=== PATIENT | female | born 1945 | race Caucasian/White ===

== ENCOUNTER 2025-06-17 20:14 | Observation (INO) ==
--- NOTE | 2025-06-17 20:33 | Emergency Department Note ---
Impression & Plan Head injury, Concussion, Hematoma of occipital region of scalp, Vomiting ED Provider Note NAME: CARMEN STEPHENS AGE: 80 SEX: F : 1945 ARRIVES VIA: Ambulance INFORMANT: Patient, EMS ED PROVIDER(S): Sukhjinder Mancilla DO CHIEF COMPLAINT: Trauma alert HPI: The patient is an 80-year-old female who presented to the emergency department after fall. The patient fell backwards striking the back of her head. Since that time she has had dizziness as well as vomiting. She has pain in the left side of her jaw. She also has ringing in her left ear. The patient denies having any fever. She denies having any syncope. The patient arrived via ALS. ROS: See above HPI for pertinent positives & negatives. A total of 10 systems reviewed and were otherwise negative. PAST MEDICAL HISTORY: See Below PAST SURGICAL HISTORY: See Below FAMILY HISTORY: See Below SOCIAL HISTORY: See Below HOME MEDICATIONS: See Below ALLERGIES: See Below VITALS: See Below PHYSICAL EXAMINATION: Primary Survey Airway: Intact Breathing: Normal, breath sounds equal bilaterally Circulation: Skin warm, distal pulses 2+, capillary refill less than 2 seconds Disability Pupils: Equal and reactive to light, 3mm, brisk GCS: 15, Motor Function: Moves all extremities. Sensory: No deficits Secondary Survey GEN: Well developed and well-nourished HEAD: There was tenderness over the left occipital scalp. There was a laceration. No active bleeding was noted. EYES: Pupils round reactive to light, conjunctiva clear, extraocular movements intact, no raccoons eyes ENT: No fluid in external acoustic canals, no hemotympanum, no galindo's sign, nares patent, oropharynx clear NECK: No JVD, midline trachea, no cervical spine tenderness, no tenderness was noted over the cervical spine. HEART: Regular rate and rhythm LUNGS: Clear to auscultation bilaterally. CHEST: Chest wall non-tender, no bruising/deformity ABD: There is no tenderness guarding or rigidity noted. BACK: No step offs or deformities, T-L spine non tender EXT: 2+ global pulses, moving all extremities well, +5/5 muscle strength globally NEURO: CNII-XII grossly intact, no sensory deficits MEDICAL DECISION MAKING: The patient is an 80-year-old female who presented to the emergency department as a trauma activation. The patient was walking when she fell backwards. She was walking upstairs and when she fell backwards down 1 step she hit the back of her head. She was made a trauma alert prior to arrival because of dizziness. She also had episodes of vomiting. I discussed patient's laboratory and radiographic studies with her. She was treated with antiemetics in the emergency department. On reevaluation she was somewhat improved. Given the patient's continued symptoms of concussion I did discuss her condition with the on-call [facility] hospitalist. They have agreed to evaluate the patient in the emergency department for further management and disposition. The patient had bleeding in her occipital scalp which is appears to be secondary to a large hematoma. There is mostly abrasions I do not feel these are amenable to laceration repair at this time. She was treated with a pressure dressing. Triage Nursing notes reviewed. Prior medical records reviewed Vital Signs: reviewed and remarkable for elevated blood pressure. Differential diagnosis: Fracture, dislocation, contusion, intra-abdominal, pneumothorax, intrathoracic, intracranial, neurologic, compartment syndrome, rhabdomyolysis, as well as other pathologies. ER treatment provided: See below Diagnostics interpreted by me: ECG:EKG was obtained in the emergency department. My interpretation is normal sinus rhythm at 73 bpm. There is no ectopy. There was no acute ST segment elevations noted. QTc was 449 ms. Cardiac Monitoring: An order was placed for continuous cardiac monitoring. The monitor shows a rate of 72 bpm with sinus rhythm. Laboratory studies: As stated above and show below. Imaging studies: See below. Radiographic imaging was reviewed by myself Consultation(s): I discussed this case with Dr. M[facility]ks [facility] COURSE: Cervical spine was clinically cleared in the emergency department. It was then radiographically cleared as well. Past Med/Surg History Problem List (Updated 06/17/25 @ 23:31 by Sukhjinder Mancilla DO) Vomiting (Acute) Hematoma of occipital region of scalp (Acute) Concussion (Acute) Head injury (Acute) Medical History (Updated 06/17/25 @ 23:31 by Sukhjinder Mancilla DO) Hypothyroid High cholesterol Hypertension Home Meds Home Medications Medication Instructions Recorded Confirmed alprazolam 0.5 mg tablet mg 06/17/25 fluoxetine 40 mg capsule mg 06/17/25 06/17/25 levothyroxine 50 mcg tablet mcg 06/17/25 lisinopril 30 mg tablet mg 06/17/25 rosuvastatin 10 mg tablet mg 06/17/25 trazodone 50 mg tablet mg 06/17/25 Results & Data (ED) Vital Signs Vital Signs - 24 hr 06/17/25 20:06 06/17/25 20:06 06/17/25 20:06 Temperature 36.6 C 36.6 C 36.6 C Temperature Source Oral Oral Pulse Rate 66 80 Pulse Rate [Apical] 70 Pulse Rate from SpO2 Sensor Pulse Rhythm Regular Pulse Rhythm [Apical] Regular Respiratory Rate 16 17 14 Respiratory Effort / Characteristics Non-Labored Spontaneous Non-Labored Respiratory Depth Normal Normal Respiratory Pattern Regular Blood Pressure 148/68 H 165/70 H Blood Pressure [Right Arm] 148/68 H Blood Pressure Mean 94 Blood Pressure Mean [Right Arm] 94 Pulse Oximetry 98 97 95 Oxygen Delivery Method Room Air Room Air Oxygen Flow Rate 0 Sepsis Recent Fever Within 48 Hours No Sepsis New/Unexplained Change in Mental Status No Sepsis Action Taken by Nursing No Action Required 06/17/25 20:06 06/17/25 20:30 06/17/25 20:31 Temperature 36.6 C Temperature Source Oral Pulse Rate 65 64 Pulse Rate [Apical] 66 Pulse Rate from SpO2 Sensor Pulse Rhythm Regular Pulse Rhythm [Apical] Respiratory Rate 17 20 Respiratory Effort / Characteristics Respiratory Depth Respiratory Pattern Blood Pressure Blood Pressure [Right Arm] 165/70 H Blood Pressure Mean Blood Pressure Mean [Right Arm] 101 Pulse Oximetry 97 97 Oxygen Delivery Method Room Air Room Air Oxygen Flow Rate Sepsis Recent Fever Within 48 Hours Sepsis New/Unexplained Change in Mental Status Sepsis Action Taken by Nursing 06/17/25 21:10 06/17/25 21:10 06/17/25 21:12 Temperature Temperature Source Pulse Rate 70 Pulse Rate [Apical] Pulse Rate from SpO2 Sensor 70 Pulse Rhythm Pulse Rhythm [Apical] Respiratory Rate 17 Respiratory Effort / Characteristics Respiratory Depth Respiratory Pattern Blood Pressure 148/65 H 148/65 H Blood Pressure [Right Arm] Blood Pressure Mean 80 80 Blood Pressure Mean [Right Arm] Pulse Oximetry 99 Oxygen Delivery Method Oxygen Flow Rate Sepsis Recent Fever Within 48 Hours Sepsis New/Unexplained Change in Mental Status Sepsis Action Taken by Nursing 06/17/25 21:18 06/17/25 21:30 06/17/25 21:30 Temperature Temperature Source Pulse Rate 67 Pulse Rate [Apical] Pulse Rate from SpO2 Sensor 68 Pulse Rhythm Pulse Rhythm [Apical] Respiratory Rate 21 Respiratory Effort / Characteristics Respiratory Depth Respiratory Pattern Blood Pressure 166/92 H 166/92 H Blood Pressure [Right Arm] Blood Pressure Mean 126 126 Blood Pressure Mean [Right Arm] Pulse Oximetry 96 Oxygen Delivery Method Oxygen Flow Rate Sepsis Recent Fever Within 48 Hours Sepsis New/Unexplained Change in Mental Status Sepsis Action Taken by Nursing 06/17/25 21:30 06/17/25 21:30 06/17/25 21:45 Temperature Temperature Source Pulse Rate 88 73 Pulse Rate [Apical] Pulse Rate from SpO2 Sensor 76 72 Pulse Rhythm Pulse Rhythm [Apical] Respiratory Rate 21 20 Respiratory Effort / Characteristics Respiratory Depth Respiratory Pattern Blood Pressure 166/92 H Blood Pressure [Right Arm] Blood Pressure Mean 126 Blood Pressure Mean [Right Arm] Pulse Oximetry 100 100 Oxygen Delivery Method Oxygen Flow Rate Sepsis Recent Fever Within 48 Hours Sepsis New/Unexplained Change in Mental Status Sepsis Action Taken by Nursing 06/17/25 21:51 06/17/25 22:00 06/17/25 22:12 Temperature Temperature Source Pulse Rate 73 68 Pulse Rate [Apical] Pulse Rate from SpO2 Sensor 73 68 Pulse Rhythm Pulse Rhythm [Apical] Respiratory Rate 18 22 Respiratory Effort / Characteristics Respiratory Depth Respiratory Pattern Blood Pressure 156/75 H Blood Pressure [Right Arm] Blood Pressure Mean 118 Blood Pressure Mean [Right Arm] Pulse Oximetry 100 99 Oxygen Delivery Method Oxygen Flow Rate Sepsis Recent Fever Within 48 Hours Sepsis New/Unexplained Change in Mental Status Sepsis Action Taken by Nursing 06/17/25 22:30 06/17/25 22:30 06/17/25 22:48 Temperature Temperature Source Pulse Rate 72 Pulse Rate [Apical] Pulse Rate from SpO2 Sensor 72 Pulse Rhythm Pulse Rhythm [Apical] Respiratory Rate 21 Respiratory Effort / Characteristics Respiratory Depth Respiratory Pattern Blood Pressure 160/63 H 160/63 H Blood Pressure [Right Arm] Blood Pressure Mean 76 76 Blood Pressure Mean [Right Arm] Pulse Oximetry 94 Oxygen Delivery Method Room Air Oxygen Flow Rate Sepsis Recent Fever Within 48 Hours Sepsis New/Unexplained Change in Mental Status Sepsis Action Taken by Custodial Medications Current Medication List: was personally reviewed by me Laboratory Data Attestation: I reviewed the patient's lab results. 06/17/25 20:23 06/17/25 20:23 Lab Results 06/17/25 06/17/25 Range/Units 20:23 20:48 WBC 8.41 (4.8-10.8) K/ul RBC 3.84 L (4.20-5.40) M/uL Hgb 12.0 (12.0-16.0) g/dl POC Hgb 11.6 L (12.0-16.0) g/dl Hct 35.0 L (37.0-47.0) % POC Hct 34 L (37-47) % MCV 91.1 (80.0-100.0) fL MCH 31.3 (25.0-34.0) pg MCHC 34.3 (32.0-36.0) g/dL RDW Std Deviation 41.8 (36.4-46.3) fL RDW Coeff of [place] 12.6 (11.5-14.5) % Plt Count 247 (130-400) K/uL MPV 9.2 L (9.4-12.4) fL Neutrophils % (Manual) 36 % Lymphocytes % (Manual) 20 % Monocytes % (Manual) 16 % Eosinophils % (Manual) 4 % Basophils % (Manual) 1 % Metamyelocytes % (Man) 1 % Myelocytes % (Man) 1 % Neutrophils # (Manual) 3.03 (1.40-6.50) K/uL Total Absolute Neuts 3.03 (1.4-6.5) K/uL Lymphocytes # (Manual) 1.68 (1.2-3.4) K/uL Total Abs Lymphocytes 3.45 H (1.2-3.4) K/uL Monocytes # (Manual) 1.35 H (0.11-0.59) K/uL Eosinophils # (Manual) 0.34 (0-0.50) K/uL Basophils # (Manual) 0.08 (0-0.2) K/uL Metamyelocytes # (Man) 0.08 H (0-0) K/uL Myelocytes # (Manual) 0.08 H (0-0) K/uL Large Granular Lymphs 21 % # Lrg Granular Lymphs 1.77 K/uL Polychromasia 1+ Ovalocytes 1+ PT 10.3 (9.0-12.0) Seconds INR 1.0 (0.9-1.1) APTT < 20 L (21-31) Seconds PTT Ratio < 0.7 POC Sodium 138 (135-144) mmol/L Sodium 136 (136-145) mmol/L POC Potassium 3.4 (3.3-5.0) mmol/L Potassium 3.5 (3.5-5.1) mmol/L POC Chloride 105 (101-112) mmol/L Chloride 105 (98-107) mmol/L Carbon Dioxide 21 (21-32) mmol/L POC Total CO2 19 L (24-31) mmol/L Anion Gap 10 (3-11) POC Anion Gap 18.0 (16-25) mmol/L POC BUN 22 H (7-18) mg/dl BUN 25 H (6-23) mg/dl Creatinine 1.02 (0.6-1.2) mg/dl POC Creatinine 1.1 (0.6-1.3) mg/dl Est Cr Clr Drug Dosing 45.5 ml/min eGFR 55.27 BUN/Creatinine Ratio 24.5 H (10-20) Glucose 136 H (70-99(Fasting)) mg/dl POC Glucose (other) 134 H (70-99) mg/dl Calcium 9.2 (8.6-10.3) mg/dl POC Ioniz Calcium Bing 1.15 (1.12-1.32) mmol/l Total Bilirubin 0.4 (0.2-1.0) mg/dl AST 23 (13-39) U/L ALT 15 (7-52) U/L Alkaline Phosphatase 68 (34-104) U/L Troponin I High Sens 7.0 (0-14) pg/ml Total Protein 6.4 (6.0-8.3) gm/dl Albumin 3.7 (3.4-5.0) gm/dl Globulin 2.7 (2.5-4.0) gm/dl Albumin/Globulin Ratio 1.4 (0.9-2) Lipase 39 (11-82) U/L Administered Medications Discontinued Medications Acetaminophen (Ofirmev) 1,000 mg in 100 mls @ 400 mls/hr IV NOW STA Stop: 06/17/25 20:44 Last Infusion: 06/17/25 21:28 Dose: Infused Documented By: mls Admin: 06/17/25 20:47 Dose: 400 mls/hr Documented By: mls Ondansetron HCl (Ondansetron Inj 2 Mg/Ml 2 Ml Vial) 4 mg IV NOW STA Stop: 06/17/25 20:31 Last Admin: 10/24/25 20:47 Dose: 4 mg Documented By: mls Imaging Data Attestation: I personally reviewed and interpreted this imaging study as follows: My Impression: CT of the brain was obtained in the emergency department. My interpretation is no intracranial hemorrhage or mass effect, final report below. Radiologist's Impression: Cervical Spine CT 06/17/25 20:30 Exam(s): CT C SPINE EXAM: CT Cervical Spine Without Intravenous Contrast CLINICAL HISTORY: Reason for exam: Trauma. TECHNIQUE: Axial computed tomography images of the cervical spine without intravenous contrast. CTDI is 26.96 mGy and DLP is 623.84 mGy-cm. Automated exposure control was utilized for the study. A dose lowering technique was utilized adhering to the principles of ALARA. COMPARISON: No relevant prior studies available. FINDINGS: Vertebrae: Mild narrowing and osteophytosis of the atlantodental joint. The odontoid process is intact. No acute fracture. Soft tissues: Unremarkable. DISCS/SPINAL CANAL/NEURAL FORAMINA: C2-C3: Mild degenerative disc disease. No stenosis. C3-C4: Mild degenerative disc disease. No stenosis. C4-C5: Severe degenerative disc disease. No stenosis. C5-C6: Moderate degenerative disc disease. No stenosis. C6-C7: Unremarkable. No significant disc disease. No stenosis. C7-T1: Unremarkable. No significant disc disease. No stenosis. 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 No acute fracture or subluxation is seen. There is reversal of the normal cervical curvature suggesting spasm. Electronically signed by: Travis Guthrie MD 06/17/25 22:02 PM Chest X-Ray 06/17/25 20:30 Exam(s): XR CXR 1 VIEW EXAM: XR Chest, 1 View CLINICAL HISTORY: Reason for exam: Trauma. TECHNIQUE: Frontal view of the chest. COMPARISON: No relevant prior studies available. FINDINGS: Lungs: Underinflated lungs with small amount of bibasilar subsegmental atelectasis, less likely infiltrate. Pleural space: Unremarkable. No pneumothorax. Heart: Unremarkable. No cardiomegaly. Mediastinum: Unremarkable. Normal mediastinal contour. Bones/joints: Unremarkable. No acute fracture. Vasculature: Mild calcification of the aortic arch which is upper normal in size. Upper abdomen: Unremarkable as visualized. No pneumoperitoneum under the diaphragm. IMPRESSION: Underinflated lungs with small amount of bibasilar subsegmental atelectasis, less likely infiltrate. Electronically signed by: Travis Guthrie MD 06/17/25 21:[address] 06/17/25 20:30 Exam(s): CT FACIAL Without Contrast EXAM: CT Maxillofacial Without Intravenous Contrast CLINICAL HISTORY: Reason for exam: Trauma. TECHNIQUE: Axial computed tomography images of the face without intravenous contrast. CTDI is 26.96 mGy and DLP is 623.84 mGy-cm. Automated exposure control was utilized for the study. A dose lowering technique was utilized adhering to the principles of ALARA. COMPARISON: No relevant prior studies available. FINDINGS: Bones/joints: Mild narrowing and osteophytosis of the right temporomandibular joint. The mandible is intact and normally positioned. No acute fracture. Soft tissues: Unremarkable. No significant facial contusion is identified. Orbits: Unremarkable. Sinuses: Unremarkable. No air-fluid levels. IMPRESSION: No acute findings in the face. Electronically signed by: Travis Guthrie MD 06/17/25 21:[address] 06/17/25 20:30 Exam(s): CT HEAD Without Contrast EXAM: CT Head Without Intravenous Contrast CLINICAL HISTORY: Reason for exam: Trauma. TECHNIQUE: Axial computed tomography images of the head/brain without intravenous contrast. CTDI is 38.55 mGy and DLP is 624.41 mGy-cm. Automated exposure control was utilized for the study. A dose lowering technique was utilized adhering to the principles of ALARA. COMPARISON: No relevant prior studies available. FINDINGS: Brain: [id number] diffuse cerebral atrophy. The brain is otherwise unremarkable. No acute large vessel infarct or intracranial hemorrhage is seen. Ventricles: Unremarkable. No ventriculomegaly. Bones/joints: See below. Soft tissues: Posterior scalp hematoma and laceration. No foreign body. No skull fracture. Sinuses: Unremarkable as visualized. No acute sinusitis. Mastoid air cells: Unremarkable as visualized. No mastoid effusion. IMPRESSION: 1. Posterior scalp hematoma and laceration. No foreign body. No skull fracture. 2. [id number]-[id number] diffuse cerebral atrophy. The brain is otherwise unremarkable. No acute large vessel infarct or intracranial hemorrhage is seen. Electronically signed by: Travis Guthrie MD 06/17/25 21:27 PM Discharge Plan Visit Data Chief Complaint: Trauma Stated Complaint: FALL, HIT BACK OF HEAD ED Provider: Sukhjinder Mancilla Discharge Problem: Head injury, Concussion, Hematoma of occipital region of scalp, Vomiting Patient Disposition: Being Evaluated by Hospitalist Condition: Fair Forms Stand Alone Forms: [facility] Prescriptions Prescriptions: No Action fluoxetine 40 mg capsule trazodone 50 mg tablet alprazolam 0.5 mg tablet levothyroxine 50 mcg tablet lisinopril 30 mg tablet rosuvastatin 10 mg tablet Referrals Referrals: PCP,NO [Primary Care Provider] -
[2025-06-17 20:40] LABS: Hematocrit (blood only) 35.0 % (37.0-47.0); Hemoglobin 12.0 g/dl (12.0-16.0); Mean Corpuscular Hemoglobin 31.3 pg (25.0-34.0); Mean Corpuscular Volume 91.1 fL (80.0-100.0); Platelet Count 247 K/uL (130-400); RDW Standard Deviation 41.8 fL (36.4-46.3); Red Blood Count 3.84 M/uL (4.20-5.40); White Blood Count 8.41 K/ul (4.8-10.8)
[2025-06-17] MEDS: ONDANSETRON INJ 2 MG/ML 2 ML VIAL IV STA (20:47)
[2025-06-17] MEDS: ACETAMINOPHEN 1,000 MG/100 ML VIAL IV STA (20:47)
[2025-06-17 20:56] LABS: Alanine Aminotransferase 15.0 U/L (7-52); Albumin Globulin Ratio 1.4 (0.9-2); Albumin Level 3.7 gm/dl (3.4-5.0); Alkaline Phosphatase 68.0 U/L (34-104); Anion Gap 10.0 (3-11); Bilirubin,Total 0.4 mg/dl (0.2-1.0); Blood Urea Nitrogen 25.0 mg/dl (6-23); Calcium 9.2 mg/dl (8.6-10.3); Carbon Dioxide 21.0 mmol/L (21-32); Chloride 105.0 mmol/L (98-107); Creatinine Clr Calc Pharmacy 45.5 ml/min; Globulin 2.7 gm/dl (2.5-4.0); Glucose 136.0 mg/dl (70-99(Fasting)); Lipase 39.0 U/L (11-82); Potassium 3.5 mmol/L (3.5-5.1); Sodium 136.0 mmol/L (136-145); Total Protein 6.4 gm/dl (6.0-8.3)
--- NOTE | 2025-06-17 21:12 | XRay Report ---
Exam(s): XR CXR 1 VIEW EXAM: XR Chest, 1 View CLINICAL HISTORY: Reason for exam: Trauma. TECHNIQUE: Frontal view of the chest. COMPARISON: No relevant prior studies available. FINDINGS: Lungs: Underinflated lungs with small amount of bibasilar subsegmental atelectasis, less likely infiltrate. Pleural space: Unremarkable. No pneumothorax. Heart: Unremarkable. No cardiomegaly. Mediastinum: Unremarkable. Normal mediastinal contour. Bones/joints: Unremarkable. No acute fracture. Vasculature: Mild calcification of the aortic arch which is upper normal in size. Upper abdomen: Unremarkable as visualized. No pneumoperitoneum under the diaphragm. IMPRESSION: Underinflated lungs with small amount of bibasilar subsegmental atelectasis, less likely infiltrate. Electronically signed by: Travis Guthrie MD 06/17/25 21:11 PM
--- NOTE | 2025-06-17 21:28 | CT Scan Report ---
Exam(s): CT HEAD Without Contrast EXAM: CT Head Without Intravenous Contrast CLINICAL HISTORY: Reason for exam: Trauma. TECHNIQUE: Axial computed tomography images of the head/brain without intravenous contrast. CTDI is 38.55 mGy and DLP is 624.41 mGy-cm. Automated exposure control was utilized for the study. A dose lowering technique was utilized adhering to the principles of ALARA. COMPARISON: No relevant prior studies available. FINDINGS: Brain: Ttju-mh-zxkowpsy diffuse cerebral atrophy. The brain is otherwise unremarkable. No acute large vessel infarct or intracranial hemorrhage is seen. Ventricles: Unremarkable. No ventriculomegaly. Bones/joints: See below. Soft tissues: Posterior scalp hematoma and laceration. No foreign body. No skull fracture. Sinuses: Unremarkable as visualized. No acute sinusitis. Mastoid air cells: Unremarkable as visualized. No mastoid effusion. IMPRESSION: 1. Posterior scalp hematoma and laceration. No foreign body. No skull fracture. 2. Hsox-jv-ijlajuap diffuse cerebral atrophy. The brain is otherwise unremarkable. No acute large vessel infarct or intracranial hemorrhage is seen. Electronically signed by: Travis Guthrie MD 06/17/25 21:27 PM
--- NOTE | 2025-06-17 21:30 | CT Scan Report ---
Exam(s): CT FACIAL Without Contrast EXAM: CT Maxillofacial Without Intravenous Contrast CLINICAL HISTORY: Reason for exam: Trauma. TECHNIQUE: Axial computed tomography images of the face without intravenous contrast. CTDI is 26.96 mGy and DLP is 623.84 mGy-cm. Automated exposure control was utilized for the study. A dose lowering technique was utilized adhering to the principles of ALARA. COMPARISON: No relevant prior studies available. FINDINGS: Bones/joints: Mild narrowing and osteophytosis of the right temporomandibular joint. The mandible is intact and normally positioned. No acute fracture. Soft tissues: Unremarkable. No significant facial contusion is identified. Orbits: Unremarkable. Sinuses: Unremarkable. No air-fluid levels. IMPRESSION: No acute findings in the face. Electronically signed by: Travis Guthrie MD 06/17/25 21:29 PM
[2025-06-17 21:58] LABS: INR 1.0 (0.9-1.1); Prothrombin Time 10.3 Seconds (9.0-12.0)
[2025-06-17 22:00] LABS: Partial Thromboplastin Time < 20 Seconds (21-31)
--- NOTE | 2025-06-17 22:04 | CT Scan Report ---
Exam(s): CT C SPINE EXAM: CT Cervical Spine Without Intravenous Contrast CLINICAL HISTORY: Reason for exam: Trauma. TECHNIQUE: Axial computed tomography images of the cervical spine without intravenous contrast. CTDI is 26.96 mGy and DLP is 623.84 mGy-cm. Automated exposure control was utilized for the study. A dose lowering technique was utilized adhering to the principles of ALARA. COMPARISON: No relevant prior studies available. FINDINGS: Vertebrae: Mild narrowing and osteophytosis of the atlantodental joint. The odontoid process is intact. No acute fracture. Soft tissues: Unremarkable. DISCS/SPINAL CANAL/NEURAL FORAMINA: C2-C3: Mild degenerative disc disease. No stenosis. C3-C4: Mild degenerative disc disease. No stenosis. C4-C5: Severe degenerative disc disease. No stenosis. C5-C6: Moderate degenerative disc disease. No stenosis. C6-C7: Unremarkable. No significant disc disease. No stenosis. C7-T1: Unremarkable. No significant disc disease. No stenosis. IMPRESSION: Cvkm-zl-aerwkjhk multilevel degenerative disc disease and facet arthrosis throughout the cervical spine. No acute fracture or subluxation is seen. There is reversal of the normal cervical curvature suggesting spasm. Electronically signed by: Travis Guthrie MD 06/17/25 22:02 PM
[2025-06-17 23:11] LABS: ALC (manual) 3.45 K/uL (1.2-3.4); ANC (manual) 3.03 K/uL (1.4-6.5); Large Granular Lymph # (manua 1.77 K/uL; Large Granular Lymph % (manual) 21 %; Ovalocytes 1+; Polychromasia 1+
--- NOTE | 2025-06-17 23:24 | History & Physical Report ---
Date of Service June 17, 2025 Assessment & Plan (1) Head injury: (2) Concussion: (3) Hematoma of occipital region of scalp: (4) Vomiting: Plan Patient is an 80-year-old female with a past medical history of HTN, HLD, hypothyroidism, depression. Patient presented via EMS after she was going up poorly lit stairs without a railing and lost her balance falling backwards striking her head on the concrete step; denies loss of consciousness or anticoagulant use. She presented as a trauma alert. She is being admitted for symptom control of postconcussive syndrome. #trauma/postconcussive syndrome/scalp hematoma Diagnostic imaging revealed posterior scalp hematoma otherwise no acute changes. Hemodynamically stable at time of admission. Dizziness/nausea control Zofran and meclizine as needed Pain control with Tylenol as needed, Toradol 10 mg IV for breakthrough pain Daily dressing changes to scalp Neurochecks every 4 hours Repeat CBC with morning labs #HTN continue lisinopril #HLD continue statin #Hypothyroidism continue levothyroxine #mental health - Continue fluoxetine, alprazolam, as needed trazodone VTE ppx: SCDs, low risk and scalp hematoma Dispo: PCU as patient was trauma alert; anticipate dc home 06/18 Admission and Anticipated Discharge Date Admission Date: 06/17/25 History of Present Illness Chief Complaint: trauma Primary Care Provider: NO PCP Patient is an 80-year-old female with a past medical history of HTN, HLD, hypothyroidism, depression. Patient presented via EMS after she was going up poorly lit stairs without a railing and lost her balance falling backwards striking her head on the concrete step; denies loss of consciousness or anticoagulant use. She presented as a trauma alert. She is being admitted for symptom control of postconcussive syndrome. Patient seen at bedside with her [id number] (who is an RN) and granddaughter present. She was visiting her granddaughters this weekend, she resides in [place]. She feels as though she lost her balance because the steps were poorly wet and there was no railing. She struck the back of her head and left side of her face on the concrete floor. She was extremely dizzy and nauseous after that episode, vomiting approximately 8 times. Denies any hematemesis. Her nausea and pain are currently well-controlled after Zofran 4 Mg IV and Tylenol 1 G IV in the ED. She denies any current dizziness/lightheadedness, chest pain, shortness of breath, abdominal pain, extremity pain. She denies nicotine use. She denies any past history of DM or lung conditions such as COPD or asthma. She is due for her evening medications which consists of lisinopril and a statin. She takes her mental health medications in the morning, has Trazodone as needed. She denies using bupropion, cyclobenzaprine, or tramadol. She wishes to be DNR/DNI. Allergies Allergy/AdvReac Type Severity Reaction Status Date / Time Sulfa (Sulfonamide Allergy Headache Verified 06/18/25 00:11 Antibiotics) Home Medications Medication Instructions Recorded Confirmed Type alprazolam 0.5 mg tablet 0.5 mg PO DAILY 06/17/25 06/17/25 History fluoxetine 40 mg capsule 40 mg PO DAILY 06/17/25 06/17/25 History levothyroxine 50 mcg tablet 50 mcg PO DAILY 06/17/25 06/17/25 History lisinopril 30 mg tablet 30 mg PO HS 06/17/25 06/17/25 History rosuvastatin 10 mg tablet 10 mg PO HS 06/17/25 06/17/25 History trazodone 50 mg tablet 50 mg PO DAILY PRN Anxiety 06/17/25 06/17/25 History Past Med/Surg History Problem List (Updated 06/17/25 @ 23:31 by Sukhjinder Mancilla DO) Vomiting (Acute) Hematoma of occipital region of scalp (Acute) Concussion (Acute) Head injury (Acute) Medical History (Updated 06/17/25 @ 23:31 by Sukhjinder Mancilla DO) Hypothyroid High cholesterol Hypertension Social History Smoking Status: Never smoker Second Hand Exposure: No; Do You Dip or Chew Tobacco: No; Tobacco Cessation Education Requested by Patient: No Hx Alcohol Use: No Hx Substance Use: No Preferred Language: Polish Communication Ability: Effective Blade Grader Operator Required: No Beliefs That Will Affect Care: None Current Living Situation: Alone Other Information That Helps Us Care for You: No Feels Safe at Home: Yes Safety Concerns: Feels Safe At This Time Assistive Devices: None Review of Systems Review of Systems: see HPI Physical Exam Physical Exam: The patient is awake, alert and oriented 3, well developed and well nourished, in no acute distress. Non-toxic appearing. HEENT- EOMI, mucous membranes moist. Hearing grossly intact. Bleeding to posterior scalp, dressing placed in ED. Heart-normal S1 and S2. No murmurs, rubs or gallops. Lungs-clear bilaterally, no respiratory distress, no accessory muscle use. Abdomen-normal bowel sounds and soft. No ascites noted. Non-tender. Extremities- no clubbing, cyanosis, or edema. Rheumatologic-normal range of motion. Psychiatric-normal affect. Results & Data Results & Data Vital Signs (Past 12 Hours) Vital Signs Temp Pulse Pulse Resp BP BP Pulse Ox 06/17/25 22:48 72 21 94 06/17/25 22:30 160/63 H 06/17/25 22:30 160/63 H 06/17/25 22:12 68 22 99 06/17/25 22:00 156/75 H 06/17/25 21:51 73 18 100 06/17/25 21:45 73 20 100 06/17/25 21:30 88 21 100 06/17/25 21:30 166/92 H 06/17/25 21:30 166/92 H 06/17/25 21:30 166/92 H 06/17/25 21:18 67 21 96 06/17/25 21:12 70 17 99 06/17/25 21:10 148/65 H 06/17/25 21:10 148/65 H 06/17/25 20:31 64 06/17/25 20:30 65 20 97 06/17/25 20:06 36.6 C 66 17 165/70 H 97 06/17/25 20:06 36.6 C 80 14 165/70 H 95 06/17/25 20:06 36.6 C 70 17 148/68 H 97 06/17/25 20:06 36.6 C 66 16 148/68 H 98 O2 Del Method O2 Flow Rate 06/17/25 22:48 Room Air 06/17/25 22:30 06/17/25 22:30 06/17/25 22:12 06/17/25 22:00 06/17/25 21:51 06/17/25 21:45 06/17/25 21:30 06/17/25 21:30 06/17/25 21:30 06/17/25 21:30 06/17/25 21:18 06/17/25 21:12 06/17/25 21:10 06/17/25 21:10 06/17/25 20:31 06/17/25 20:30 Room Air 06/17/25 20:06 Room Air 06/17/25 20:06 Room Air 0 06/17/25 20:06 06/17/25 20:06 Room Air Laboratory Results reviewed cbc, cmp, pt/inr, trop Diagnostic Findings reviewed head ct, face ct, cxr, cervical spine CT Medications Administered ed - zofran 4mg IV, Tylenol 1g IV ECG Additional Comments: ordered Code Status & VTE Plan Code Status dnr/dni VTE Prophylaxis Plan VTE Prophylaxis will be ordered: Yes Supervising Physician Co-Signing Physician Notes Attending addendum: I have physically seen this patient, have supervised the MARGUERITE's activities, and agree with the H&P unless as otherwise noted. Assessment and Plan: The patient is an 80-year-old female with past medical history of hypertension, hyperlipidemia, hypothyroidism, and depression. She presented to the emergency department via EMS after losing her balance going up a poorly lit flight of stairs, fell backwards, and struck her head on a concrete step. She denies loss of consciousness. She does not take antiplatelets or anticoagulants. She presented to the emergency department as a trauma alert. [facility], likely postconcussive syndrome. Trauma/postconcussive syndrome/scalp hematoma- Admit to monitored bed CT face negative CT cervical spine showed multilevel degenerative disc disease and facet arthrosis along with cervical muscle spasm. CT scan of head showed p osterior scalp hematoma and lack, with mild to moderate cerebral atrophy. Acetaminophen 600 mg by mouth every 6 hours as needed for mild pain or fever Zofran 4 mg IV every 6 hours as needed Meclizine 12.5 mg p.o. every 6 hours as needed vertigo Wound care Neurochecks every 4 hours per protocol Repeat CBC with differential and basic metabolic panel in the a.m. Avoid NSAIDs and anticoagulation post trauma Hypertension- Continue lisinopril Hyperlipidemia- Continue rosuvastatin Hypothyroidism- Continue levothyroxine Mental health- Continue fluoxetine, alprazolam and as needed trazodone Remaining orders and notations as noted PG Care Time/CCT Total # of Minutes Spent Total Time Spent with Patient: Total time spent is greater than 50% in coordination of care (as documented) at patient's floor/unit and/or counseling patient: Coding Level of Care Code 38619 INT INP/OBS CARE 3/75MIN Diagnoses Head injury S09.90XA Concussion S06.0XAA Hematoma of occipital region of scalp S00.03XA Vomiting R11.10
[2025-06-18] MEDS: LIDOCAINE 1% LOCAL 20 ML VIAL INFIL ONE (00:12)
[2025-06-18] MEDS ORDERED: DOCUSATE SODIUM 100 MG CAP PO PRN (01:12)
[2025-06-18] MEDS ORDERED: MELATONIN 3 MG TAB PO PRN (01:12)
[2025-06-18] MEDS: MECLIZINE 12.5 MG TAB PO PRN (01:26)
[2025-06-18 03:14] LABS: Appearance Urine Clear (Clear); Bacteria Urine Automated None Seen (None Seen); Cast Urine Automated 0-2 /lpf (0-2); Epithelial Cell Urine Auto 0-2 /hpf (0-2); Glucose Urine UA Negative (Negative); WBC Urine Automated 0-5 /hpf (0-5)
[2025-06-18] MEDS: LEVOTHYROXINE SODIUM 50 MCG TABLET PO SCH (06:33)
[2025-06-18 06:39] LABS: Hematocrit (blood only) 33.8 % (37.0-47.0); Hemoglobin 11.3 g/dl (12.0-16.0); Immature Granulocytes # (auto) 0.03 K/uL (0.01-0.20); Immature Granulocytes % (auto) 0.4 %; Mean Corpuscular Hemoglobin 31.0 pg (25.0-34.0); Mean Corpuscular Volume 92.9 fL (80.0-100.0); Platelet Count 217 K/uL (130-400); RDW Standard Deviation 42.6 fL (36.4-46.3); Red Blood Count 3.64 M/uL (4.20-5.40); White Blood Count 7.27 K/ul (4.8-10.8)
[2025-06-18] MEDS: ACETAMINOPHEN 325 MG TAB PO PRN (07:55)
--- NOTE | 2025-06-18 14:58 | Hospitalist Progress Note ---
Date of Service June 18, 2025 Assessment & Plan (1) Head injury: (2) Concussion: (3) Hematoma of occipital region of scalp: (4) Vomiting: Plan Patient is an 80-year-old female with a past medical history of HTN, HLD, hypothyroidism, depression. Patient presented via EMS after she was going up poorly lit stairs without a railing and lost her balance falling backwards striking her head on the concrete step; denies loss of consciousness or anticoagulant use. She presented as a trauma alert. She is being admitted for symptom control of postconcussive syndrome. #trauma/postconcussive syndrome/scalp hematoma Diagnostic imaging revealed posterior scalp hematoma otherwise no acute changes. Hemodynamically stable at time of admission. Dizziness/nausea control Zofran and meclizine as needed Pain control with Tylenol as needed, Toradol 10 mg IV for breakthrough pain Daily dressing changes to scalp Neurochecks every 4 hours - pt will need to have ongoing monitoring for development of SDH: very close monitoring for the next 2-3 weeks followed by peripheral monitoring for few months #HTN continue lisinopril #HLD continue statin #Hypothyroidism continue levothyroxine #mental health - Continue fluoxetine, alprazolam, as needed trazodone VTE ppx: SCDs, low risk and scalp hematoma Dispo: PCU as patient was trauma alert; anticipate dc home 06/19 pending improvement of nausea / dizziness and she would also need to ambulate 06/18: family at bedside, updated provided, and all questions answered Admission and Anticipated Discharge Date Admission Date: June 17, 2025 Subjective Pt states that her symptoms are improving compared to when she first came in. She is still having dizziness with position change, but significantly improved. Review of Systems Review of Systems: Comprehensive ROS completed and is otherwise negative. Physical Exam Physical Exam: Gen: no acute distress, lying in bed comfortable HEENT: posterior scalp hematoma (currently in dressing), MMM Lungs: nonlabored breathing, CTAB CVS: s1s2nl, RRR Abd: nl bowel sounds, soft, NT / ND : no benavides Ext: no edema Neuro: AAOx3 Psych: calm, cooperative Results & Data Results & Data Vital Signs (Past 12 Hours) Vital Signs Temp Pulse Resp BP Pulse Ox O2 Del Method 06/18/25 11:54 36.6 C 77 18 149/77 H 95 Room Air 06/18/25 07:37 36.4 C L 80 18 150/68 H 96 Room Air 06/18/25 04:02 36.5 C 70 18 141/67 H 96 Room Air PG Care Time/CCT Total # of Minutes Spent Total Time Spent with Patient: Total time spent is greater than 50% in coordination of care (as documented) at patient's floor/unit and/or counseling patient: Coding Level of Care Code 37427 SUB INP/OBS CARE 3/50MIN Diagnoses Head injury S09.90XA Concussion S06.0XAA Hematoma of occipital region of scalp S00.03XA Vomiting R11.10
[2025-06-18] MEDS: ONDANSETRON INJ 2 MG/ML 2 ML VIAL IV PRN (15:35)
--- NOTE | 2025-06-18 16:47 | Electrocardiogram Report ---
Test Reason : Blood Pressure : */* mmHG Vent. Rate : 73 BPM Atrial Rate : 73 BPM P-R Int : 164 ms QRS Dur : 84 ms QT Int : 408 ms P-R-T Axes : 47 15 42 degrees QTcB Int : 449 ms Normal sinus rhythm Low voltage QRS Borderline ECG No previous ECGs available Confirmed by Albert Waddell ([id number]) on 06/18/2025 4:46:51 PM Referred By: Confirmed By: Albert Waddell
[2025-06-18] MEDS: ROSUVASTATIN CALCIUM 10 MG TAB PO SCH (20:07)
[2025-06-18] MEDS: KETOROLAC TROMETHAMINE 15 MG/ML VIAL IV PRN (20:09)
[2025-06-19 06:26] LABS: Hematocrit (blood only) 33.2 % (37.0-47.0); Hemoglobin 11.7 g/dl (12.0-16.0); Mean Corpuscular Hemoglobin 32.8 pg (25.0-34.0); Mean Corpuscular Volume 93.0 fL (80.0-100.0); Platelet Count 217 K/uL (130-400); RDW Standard Deviation 42.5 fL (36.4-46.3); Red Blood Count 3.57 M/uL (4.20-5.40); White Blood Count 6.73 K/ul (4.8-10.8)
[2025-06-19 06:47] LABS: Anion Gap 8.0 (3-11); Blood Urea Nitrogen 34.0 mg/dl (6-23); Calcium 9.0 mg/dl (8.6-10.3); Carbon Dioxide 25.0 mmol/L (21-32); Chloride 103.0 mmol/L (98-107); Creatinine Clr Calc Pharmacy 52.4 ml/min; Glucose 105.0 mg/dl (70-99(Fasting)); Magnesium 2.2 mg/dl (1.7-2.4); Potassium 3.9 mmol/L (3.5-5.1); Sodium 136.0 mmol/L (136-145)
[2025-06-19 08:46] VITALS: TEMP 98.1; O2SAT 94
--- NOTE | 2025-06-19 10:17 | CT Scan Report ---
HISTORY: Recent head injury. Vomiting. TECHNIQUE: CT of the head without contrast. Images are presented in axial, sagittal, and coronal reformats. COMPARISON: Head CT dated 06/17/2025. FINDINGS: High right parietal convexity subdural hematoma has almost entirely resolved since the prior study. No new intracranial hemorrhage.No mass effect or midline shift. Mild volume loss and chronic microvascular ischemic changes. Small bifrontal subdural hygromas. Ventricular caliber is appropriate. Fourth ventricle is midline. Basal cisterns are patent.Pierce-white differentiation is maintained. Intracranial atherosclerotic vascular calcifications. Globes and orbits are unremarkable.Right posterior parietal scalp edema and hematoma.Paranasal sinuses and mastoid air cells are clear. No calvarial fracture. IMPRESSION: * High right parietal convexity subdural hematoma has almost entirely resolved since the prior study. No new intracranial hemorrhage. No mass effect or midline shift. * Right parietal scalp edema and hematoma. * Mild volume loss and chronic microvascular ischemic changes. * Small chronic bifrontal subdural hygromas. ACT 112: Positive. There are findings on this exam that require communication between the performing entity and the patient following Patient Test Result Information Act ([place] ACT 112) guidelines. Electronically signed by Parish Head 06-19-2025 10:17 AM
[2025-06-19 12:20] VITALS: BP 138/67; PULSE 71; RESP 18
--- NOTE | 2025-06-19 13:33 | Neurology Consultation ---
Date of Consultation June 19, 2025 Assessment & Plan (1) Concussion: (2) Head injury: (3) Subdural hematoma: Plan - No red flags observed today. Nausea/vomiting much improved. Vertigo symptoms much improved. Reviewed head CT from this morning shows resolving parietal hematoma. No active bleeding seen. - Given neuroexam/symptoms much improved suggest patient okay to discharge. Patient interested in being discharged today to home. - She has to follow-up with her primary care doctor earlier this week. She states there is an appointment for Friday. At that time repeat CT of the head should be done without contrast looking for complete resolution of her right parietal hematoma. - Discussed fall precautions with patient. - Patient is to avoid NSAIDs or medicines that could exacerbate bleed. - Return to the ER in has stroke signs or symptoms. Thank you for the teleneurology consultation if there are any further questions or issues or concerns please recontact me. Total time spent: Was 45 minutes (includes patient discussion/coordination of care with physician, patient EHR record review and documentation) Alfredo Chatman MD Neurology Telehealth Consultation Telehealth Information Telehealth Information: PHONE consultation I performed this visit using a real-time telehealth connection between my location and the patients originating location ([facility]). After connecting through telephone, patient was identified by name and date of and/or wristband check.Patient (or authorized healthcare premium representative) was informed that this was a telemedicine visit and it was being conducted confidentially over secure lines. My office door was closed and no one else was present in the room with me.Patient (or authorized healthcare premium representative) provided consent to proceed with the visit, expressed an understanding of privacy and security of the telemedicine visit, and gave permission to have a hospital premium representative in the room in order to assist with the visit and to conduct portions of the visit, as needed. I informed the patient (or authorized healthcare premium representative) that I reviewed their record and presented the opportunity for them to ask any questions regarding the visit today. The patient agreed to participate. History of Present Illness Reason for Consultation: Subdural Hematoma Concussion Requesting Physician: Dr. Cayla Horne Attending Physician: Cayla Horne MD History of Present Illness 80-year-old presents after a fall. She is not from the area but from [place] and was visiting here over the weekend. Fall happened on [address] eventually patient did not trip but the steps were poorly lit and subsequent had a fall hitting her head. She denies any loss of consciousness. She was fine prior. Since the fall has been having some nausea and headaches did have some vomiting at least overnight. She got checked in as a trauma had a CT scan of the spine with no reported fractures did have some degenerative changes but no other acute findings. Head CT performed on the showed bilateral hygromas old findings some atrophy. Repeat head CT performed today 06/19 showed resolving right parietal hematoma. Upon review of the studies I did not see this on the initial CT. Currently patient feels much improved. Denies any nausea or vomiting this morning. Denies any red flags such as vision changes. She is currently on meclizine and antiemetics and tolerating it well. Discussed with nursing staff and has not noticed any focal deficits on examination. She has an appointment with her primary care physician early next week. She has not been up and walking as of yet she was able to eat today without difficulty. Allergies Allergy/AdvReac Type Severity Reaction Status Date / Time Sulfa (Sulfonamide Allergy Headache Verified 06/18/25 00:11 Antibiotics) Home Medications Medication Instructions Recorded Confirmed Type alprazolam 0.5 mg tablet 0.5 mg PO DAILY 06/17/25 06/17/25 History fluoxetine 40 mg capsule 40 mg PO DAILY 06/17/25 06/17/25 History levothyroxine 50 mcg tablet 50 mcg PO DAILY 06/17/25 06/17/25 History lisinopril 30 mg tablet 30 mg PO HS 06/17/25 06/17/25 History rosuvastatin 10 mg tablet 10 mg PO HS 06/17/25 06/17/25 History trazodone 50 mg tablet 50 mg PO DAILY PRN Anxiety 06/17/25 06/17/25 History Patient History Medical History Hypothyroid High cholesterol Hypertension Social History Smoking Status: Never smoker Second Hand Exposure: No; Do You Dip or Chew Tobacco: No; Tobacco Cessation Education Requested by Patient: No Hx Alcohol Use: No Hx Substance Use: No Preferred Language: Indian Communication Ability: Effective Electronic Operator Required: No Beliefs That Will Affect Care: None Current Living Situation: Alone Other Information That Helps Us Care for You: No Feels Safe at Home: Yes Safety Concerns: Feels Safe At This Time Assistive Devices: None Review of Systems Other than above she denies any other complaints. Review of system does admit to some nausea and vomiting now much more improved. Some headaches. Does admit to some vertigo-like symptoms on meclizine. Physical Exam Pleasant woman in no acute distress she was alert and oriented x 3 had good attention/concentration. There was no evident dysarthria on our conversation did not have any aphasia expressive conductively receptive. Her memory short- term was reasonable regarding the most recent events. Per nursing staff there was no facial symmetry noted there were no abnormal movements noted such as tremors myoclonus or seizure activity. Results & Data Vital Signs (Past 12 Hours) Vital Signs Temp Pulse Pulse Resp BP Pulse Ox O2 Del Method 06/19/25 12:19 36.7 C 71 18 138/67 94 Room Air 06/19/25 09:12 68 06/19/25 08:45 36.7 C 71 20 148/70 H 94 Room Air 06/19/25 03:06 36.6 C 76 18 133/67 96 Room Air (1) Concussion Encounter type: subsequent encounter Loss of consciousness presence/duration: without LOC Qualified Code(s): S06.0X0D - Concussion without loss of consciousness, subsequent encounter (2) Head injury Encounter type: subsequent encounter Qualified Code(s): S09.90XD - Unspecified injury of head, subsequent encounter
--- NOTE | 2025-06-19 14:11 | Discharge Summary ---
Discharge Summary Date of Service June 19, 2025 Principal Dx & Hospital Course #1 = Principal Diagnosis (1) Head injury: (2) Concussion: (3) Hematoma of occipital region of scalp: (4) Vomiting: Plan Patient is an 80-year-old female with a past medical history of HTN, HLD, hypothyroidism, depression. Patient presented via EMS after she was going up poorly lit stairs without a railing and lost her balance falling backwards striking her head on the concrete step; denies loss of consciousness or anticoagulant use. She presented as a trauma alert. She is being admitted for symptom control of postconcussive syndrome. #trauma/postconcussive syndrome/scalp hematoma/right parietal SDH Diagnostic imaging revealed posterior scalp hematoma otherwise no acute changes. Hemodynamically stable at time of admission. Dizziness/nausea control Zofran and meclizine as needed - CT head showing resolving right parietal SDH compared to admission CT head , scalp hematoma improving - repeat CT head in 1 week - close monitoring as outpatient and any neurological change will require immediate evaluation in ER - neurology recs appreciated #HTN continue lisinopril #HLD continue statin #Hypothyroidism continue levothyroxine #mental health - Continue fluoxetine, alprazolam, as needed trazodone #Dispo: d/c home, outpatient follow up 06/18: pt's family at bedside 06/19: pt's son at bedside, plan discussed in detail. all questions answered Admission HPI Per Admitting Provider Patient is an 80-year-old female with a past medical history of HTN, HLD, hypothyroidism, depression. Patient presented via EMS after she was going up poorly lit stairs without a railing and lost her balance falling backwards striking her head on the concrete step; denies loss of consciousness or antic oagulant use. She presented as a trauma alert. She is being admitted for symptom control of postconcussive syndrome. Patient seen at bedside with her [id number] (who is an RN) and lucho fairbanks. She was visiting her granddaughters this weekend, she resides in [place]. She feels as though she lost her balance because the steps were poorly wet and there was no railing. She struck the back of her head and left side of her face on the concrete floor. She was extremely dizzy and nauseous after that episode, vomiting approximately 8 times. Denies any hematemesis. Her nausea and pain are currently well-controlled after Zofran 4 Mg IV and Tylenol 1 G IV in the ED. She denies any current dizziness/lightheadedness, chest pain, shortness of breath, abdominal pain, extremity pain. She denies nicotine use. She denies any past history of DM or lung conditions such as COPD or asthma. She is due for her evening medications which consists of lisinopril and a statin. She takes her mental health medications in the morning, has Trazodone as needed. She denies using bupropion, cyclobenzaprine, or tramadol. She wishes to be DNR/DNI. Discharge Exam Gen: no acute distress, lying in bed comfortable HEENT: posterior scalp hematoma (much improved), MMM Lungs: nonlabored breathing, CTAB CVS: s1s2nl, RRR Abd: nl bowel sounds, soft, NT / ND : no benavides Ext: no edema Neuro: AAOx3 Psych: calm, cooperative Discharge Plan Discharge Items Patient Disposition: Home - Self-Care Reason For Visit: TRAUMA, POST CONCUSSIVE SYNDROME Discharge Diagnosis: Trauma, post concussive syndrome Condition on Discharge: Fair Activity: Resume your previous activity Activity Comment: gradually increase as tolerated Driving/Machine Use: do not drive until cleared by PCP Non-emergency contact: Primary Care Provider Call non-emergency contact if: you have any medication questions, your symptoms worsen and your pain is worsening Follow-up/Referrals: PCP,NO [Primary Care Provider] - Diet: Regular Addtl Attending Provider Instructions: You were admitted to [facility] for the evaluation after head trauma. You had significant headache, dizziness, nausea/vomiting after the trauma. Your symptoms have significantly improved during your stay. Your CT scan showed small subdural hemorrhage in the high right parietal region. Repeat CT scan is showing improvement. You were evaluated by neurology and was recommended to have repeat CT scan in 1 week. If you have worsening confusion, weakness, vision changes, stroke-like symptoms, immediately go to the nearest ER for further imaging. You will need ongoing monitoring for at least few months to ensure no clinical worsening. Please do not drive yourself or take a flight until the bleeding has fully resolved and cleared by your PCP. Continue to avoid NSAIDs. Shower in the seated position and with someone nearby for assistance. You are medically stable for discharge and was cleared to be discharged by neurology. You will need to follow up with your primary care doctor in about 7 to 10 days. It was a pleasure being a part of your medical care team during your stay at [facility]. Pending Studies at Discharge: No Stand-Alone Forms: My [facility], Smoking Cessation Medications and DC Order Prescriptions: Continued fluoxetine 40 mg capsule 40 mg PO DAILY trazodone 50 mg tablet 50 mg PO DAILY PRN (Reason: Anxiety) alprazolam 0.5 mg tablet 0.5 mg PO DAILY levothyroxine 50 mcg tablet 50 mcg PO DAILY lisinopril 30 mg tablet 30 mg PO HS rosuvastatin 10 mg tablet 10 mg PO HS Discharge Orders: Discharge Order (Routine); Ordered 06/19/25 Ordered By: Cayla Horne Admission Data Admit Date/Time: 06/19/25 07:19 Attending Provider: Cayla Horne Admit Provider: Joss Dillard Primary Care Provider: PCP,NO Other Providers: Joss Dillard; Alfredo Chatman Hospital Stay Data Consultations 06/17/25 22:44 ED Decision to Admit Stat 06/19/25 11:15 Consult Neurology Routine Diagnostic Imagining Performed 06/17/25 20:30 CT cervical spine wo con Stat CT facial bones wo con Stat CT head/brain wo con Stat 06/19/25 09:23 CT head/brain wo con Stat Pending Results Patient Have Any Pending Studies at Discharge: No Discharge Instructions Given to Patient (Per Discharging Provider) You were admitted to [facility] for the evaluation after head trauma. You had significant headache, dizziness, nausea/vomiting after the trauma. Your symptoms have significantly improved during your stay. Your CT scan showed small subdural hemorrhage in the high right parietal region. Repeat CT scan is showing improvement. You were evaluated by neurology and was recommended to have repeat CT scan in 1 week. If you have worsening confusion, weakness, vision changes, stroke-like symptoms, immediately go to the nearest ER for further imaging. You will need ongoing monitoring for at least few months to ensure no clinical worsening. Please do not drive yourself or take a flight until the bleeding has fully resolved and cleared by your PCP. Continue to avoid NSAIDs. Shower in the seated position and with someone nearby for assistance. You are medically stable for discharge and was cleared to be discharged by neurology. You will need to follow up with your primary care doctor in about 7 to 10 days. It was a pleasure being a part of your medical care team during your stay at [facility]. Total Time Total Time Spent Total Time Spent (In Minutes): 45 Coding Level of Care Code 70088 INP/OBS DISCH >30 MIN Diagnoses Injury of head, subsequent encounter S09.90XD Encounter type: subsequent encounter Concussion without loss of consciousness, subsequent encounter S06.0X0D Encounter type: subsequent encounter Loss of consciousness presence/duration: without LOC Hematoma of occipital region of scalp S00.03XA Vomiting R11.10
== END 2025-06-19 15:18 | disposition home or self-care (01) | DRG 90 ==
LOC: SUATTDRO → ED 20:14 → 4W 20:14 → SUATTDRO 23:28 → 4W 06-18 00:26